=== PATIENT | female | born 1975 | race Caucasian/White ===

== ENCOUNTER 2021-06-01 04:36 | Emergency (ER) | payer MEDICAID, OTHER ==
[~2021-06-01] VITALS: Ht 157.5 cm; Wt 89.4 kg
[2021-06-01] MEDS ORDERED: BENZOCAINE (DENTAL) 20 % SPRAY 60ML MT ONE (06:15)
[2021-06-01 06:55] VITALS: BP 127/86
== END 2021-06-01 06:59 | disposition home or self-care (01) ==
LOC: ER 04:36
DX: K02.9 Dental caries, unspecified (principal); F17.210 Nicotine dependence, cigarettes, uncomplicated